=== PATIENT | male | born 1975 | race Caucasian/White ===

== ENCOUNTER 2018-11-23 21:59 | Emergency (ER) | payer BC, OTHER ==
[~2018-11-23] VITALS: Ht 172.7 cm; Wt 122.5 kg
[2018-11-23 22:05] VITALS: BP_SYST 114
--- NOTE | 2018-11-23 22:05 | NUR ---
Patient triaged and placed in waiting room. VSS and patient appears in no acute distress at this time. Accompanied by self, awaiting available bed, and MD notified of need for MSE.
--- NOTE | 2018-11-23 23:54 | NUR ---
Patient to ER bed 6 to gown for evaluation. Side rails up. Report given to Monroe AYALA.
--- NOTE | 2018-11-24 00:47 | NUR ---
ER at bedside examining patient.
--- NOTE | 2018-11-24 01:00 | NUR ---
Pt BIB family to ED stating "I just wasn't feeling right." He is requesting to have his blood pressure evaluated. He also had a "funny feeling" in his chest. He denies any pain or shortness of breath. No nausea or vomiting. No neck/jaw/or arm pain. No other complaints and or injuries noted. VSS no s/s of acute distress. Resting on gurney rails up
[2018-11-24 01:27] LABS: WHITE BLOOD COUNT (AUTO) 8.2 K/uL (4.8-10.8)
[2018-11-24 01:28] LABS: HEMATOCRIT 44.9 % (36-54); HEMOGLOBIN 15.6 g/dL (14.0-18.0); LYMPHOCYTES % (AUTO) 29.5 % (20.5-51.5); MEAN CORPUSCULAR HEMOGLOBIN 33 pg (27-31); MEAN CORPUSCULAR HGB CONC 35 % (32-36); MEAN CORPUSCULAR VOLUME 96 fL (79.0-98.0); NEUTROPHILS % (AUTO) 55.4 % (40.0-70.0); PLATELET COUNT (AUTO) 226 K/uL (130-430); RED BLOOD CELL COUNT(AUTO) 4.58 MIL/uL (4.2-6.2); RED CELL DISTRIBUTION WIDTH 13.9 % (9.0-15.0)
[2018-11-24 01:29] LABS: BASOPHILS # (AUTO) 0.2 K/uL (0.0-0.2); BASOPHILS % (AUTO) 2.8 % (0.0-2.0); EOSINOPHILS # (AUTO) 0.4 K/uL (0.0-0.4); EOSINOPHILS % (AUTO) 5.3 % (0.0-4.0); LYMPHOCYTES # (AUTO) 2.4 K/uL (1.0-5.5); MONOCYTES # (AUTO) 0.6 K/uL (0.0-1.0); NEUTROPHILS # (AUTO) 4.5 K/uL (1.8-7.7)
[2018-11-24 01:30] LABS: ANION GAP 7 (5-15); CALCIUM 8.6 mg/dL (8.4-11.0); CHLORIDE 107 mmol/L (98-107); CREATININE 0.67 mg/dL (0.55-1.30); GLUCOSE 96 mg/dL (70-99); POTASSIUM 3.8 mmol/L (3.5-5.1); SODIUM SERUM 140 mmol/L (136-145); UREA NITROGEN, BLOOD 17 mg/dL (8-21)
--- NOTE | 2018-11-24 01:35 | NUR ---
Dr. Hernandez bedside for Pt update
[2018-11-24 01:37] LABS: ALANINE AMINOTRANSFERASE 76 U/L (12-78); ALBUMIN 3.8 g/dL (3.4-4.8); ASPARTATE AMINOTRANSFERASE 14 U/L (10-37); TOTAL BILIRUBIN 0.5 mg/dL (0.0-1.0)
[2018-11-24 01:38] LABS: GFR AFRICAN AMERICAN 167 mL/min (>90)
--- NOTE | 2018-11-24 02:25 | NUR ---
VSS no s/s of acute distress. Resting on gurney rails up
[2018-11-24 03:05] VITALS: BP_SYST 114
--- NOTE | 2018-11-24 03:05 | NUR ---
Patient given written and verbal discharge instructions and verbalizes understanding. ER MD discussed with patient the results and treatment provided. Patient in stable condition. ID arm band removed. Patient educated on pain management and to follow up with PMD. Pain Scale 0/10 Opportunity for questions provided and answered.
== END 2018-11-24 03:05 | disposition home or self-care (01) ==
LOC: SED 21:59
DX: B34.9 Viral infection, unspecified (principal); Z88.0 Allergy status to penicillin
CPT/HCPCS: 36415; 71045; 80053; 84484; 85025; 99284